=== PATIENT | female | born 1960 | race Caucasian/White ===

== ENCOUNTER 2018-06-02 15:54 | Emergency (ER) | payer BC, MEDICARE | END 2018-06-02 18:01 | disposition home or self-care (01) | LOC: COL.ER 15:54 | DX: K56.41 Fecal impaction (principal); C50.919 Malignant neoplasm of unspecified site of unspecified female breast ==

== ENCOUNTER 2018-07-08 13:40 | Observation (INO) | payer BC, MEDICARE ==
[~2018-07-08] VITALS: Ht 165.1 cm; Wt 56.8 kg
[~2018-07-08 13:40] MED LIST: METHADONE H10 MG/TAB PO; MIRALAX510G PO; PROTONIX 40MG T40 MG PO; VALTREX 50500 MG/TAB PO; ZOFRAN 4MG T4 MG/TAB PO
[2018-07-08 14:45] LABS: BASO % 0.4 % (0.0-2.0); GRAN # 3.9 (1.4-6.5); GRAN % 75.3 % (42.2-75.2); LYMPH # 0.9 (1.2-3.4); LYMPH % 18.3 % (20.0-51.0); MEAN CELL VOLUME 92 fl (80.0-100.0); MEAN CORPUSCULAR HEMOGLOBIN 29 pg (27.0-31.0); MEAN CORPUSCULAR HGB CONC 32 g/dl (33.0-37.0); MEAN PLATELET VOLUME 9.2 fl (7.4-10.4); MONO # 0.3 (0.1-0.6); MONO % 5.6 % (1.7-9.3); PLATELET COUNT 169 K/mm3 (130-400); RED BLOOD COUNT 3.44 M/mm3 (4.10-5.30); REDCELL DISTRIBUTION WIDTH-CV 16.4 % (11.5-14.5)
[2018-07-08 14:46] LABS: HEMATOCRIT 31.6 % (37.0-47.0)
[2018-07-08 14:59] LABS: ALBUMIN 3.4 gm/dL (3.5-5.0); BILIRUBIN,TOTAL 0.4 mg/dL (0.0-1.0); CALCIUM 8.7 mg/dL (8.4-10.2); CREATININE, serum 0.66 (0.52-1.25); TOTAL PROTEIN 6.3 gm/dL (6.4-8.2)
--- NOTE | 2018-07-08 16:34 | NUR ---
LUIS met with the patient and her sister, Nimco Yuan . The patient lives alone in [place]. The patient has a walker. The patient does not have a PCP at this time. However, the patient does have an oncologist, Dr. Rocky Cr. The patient receives her medications from [facility] pharmacy and the patient reports no difficulties obtaining her medications. The patient does not have advanced directives in the EMR, but reports she does have them completed. The patient expressed interest in home health services. LUIS provided a list of home health agencies for the [facility] from Medicare.gov. LUIS will continue to follow.
[2018-07-08] MEDS ORDERED: NEURONTIN300 MG/CAP PO (16:42)
[2018-07-08 17:30] LABS: COLLECTION METHOD CLEAN CATCH
[2018-07-08 17:41] LABS: PH 7 (5-8); SQUAMOUS EPITHELIAL 0-2 /hpf; URINE APPEARANCE Clear; URINE BACTERIA None Seen /hpf; URINE BILIRUBIN Negative (NEGATIVE); URINE BLOOD Negative (NEGATIVE); URINE COLOR Yellow; URINE GLUCOSE Negative (NEGATIVE); URINE KETONE Negative (NEGATIVE); URINE LEUKOCYTE ESTERASE Negative (NEGATIVE); URINE NITRATE Negative (NEGATIVE); URINE PROTEIN(semi-quant) Negative (NEGATIVE); URINE RBC 0-2 /hpf; URINE UROBILINOGEN Negative (NEGATIVE)
--- NOTE | 2018-07-08 18:23 | NUR ---
Patient alert and oriented, answers questions appropriately. See assessment. Weakness noted with ambulation. C/o difficulty rising from toilet. No other c/o at this time.
[2018-07-08 20:48] VITALS: BP 108/51; PULSE 69; TEMP 98
[2018-07-08 23:43] VITALS: BP 99/52; PULSE 71; TEMP 98.2
--- NOTE | 2018-07-08 23:54 | NUR ---
Patient assessed. Reports pain to bilateral shoulders, radiating to her back. Receives methadone and neurontin at home for pain management. Home medications restarted and brought to patient. Patient reported she takes two 10mg tabs of Methadone. Called [facility] and given verbal order to increase to 20mg Q8H. Order updated. Patient voices no other needs or concerns at this time. Given mouth moisturizer as requested for chaped lips. Requested staff not wake her up when she falls asleep. Checked midnight VS. Did notify patient that staff would peak in on her throughout the night and try not to wake her up unless needed. Voiced understanding. Laying in bed at this time watching TV. Call light is within reach.
[2018-07-09] VITALS (8 sets, daily range): BP systolic 85–110; BP diastolic 50–65; PULSE 72–100; TEMP 97.9–98.2
--- NOTE | 2018-07-09 03:05 | NUR ---
Resting in bed with eyes closed at this time. Call light is within reach.
[2018-07-09 06:21] LABS: BASO % 0.3 % (0.0-2.0); GRAN # 2.6 (1.4-6.5); GRAN % 66.1 % (42.2-75.2); LYMPH # 1.1 (1.2-3.4); LYMPH % 26.8 % (20.0-51.0); MEAN CELL VOLUME 92 fl (80.0-100.0); MEAN CORPUSCULAR HGB CONC 32 g/dl (33.0-37.0); MEAN PLATELET VOLUME 9.9 fl (7.4-10.4); MONO # 0.3 (0.1-0.6); MONO % 6.3 % (1.7-9.3); PLATELET COUNT 155 K/mm3 (130-400); REDCELL DISTRIBUTION WIDTH-CV 16.3 % (11.5-14.5)
[2018-07-09 06:23] LABS: HEMATOCRIT 26.8 % (37.0-47.0); HEMOGLOBIN 8.5 g/dl (12.5-16.0); MEAN CORPUSCULAR HEMOGLOBIN 29 pg (27.0-31.0)
--- NOTE | 2018-07-09 06:25 | NUR ---
Patient slept on and off after around midnight. Denies having pain and discomfort. Given coffee as requested. Denies having any other needs or concerns at this time. Sitting up in bed watching TV at this time. Call light is within reach.
[2018-07-09 06:35] LABS: ALBUMIN 2.7 gm/dL (3.5-5.0); BILIRUBIN,TOTAL 0.2 mg/dL (0.0-1.0); CALCIUM 7.9 mg/dL (8.4-10.2); CREATININE, serum 0.56 (0.52-1.25); POTASSIUM 3.8 mmol/L (3.4-5.0); TOTAL PROTEIN 5.3 gm/dL (6.4-8.2)
--- NOTE | 2018-07-09 08:00 | NUR ---
PATIENT IS DROWSY THIS MORNING, BUT AROUSES EASILY TO NAME. PATIENT IS A&O. VSS. TELE IN PLACE. GENERALIZED WEAKNESS NOTED. BOWEL SOUNDS ACTIVE ALL FOUR QUADRANTS. PATIENT TOLERATING DIET WITHOUT ANY COMPLAINTS OF N/V. POSITIVE PEDAL PULSES EQUAL BILATERALLY. 1+ PITTING-EDEMA TO FEET BILATERALLY. DANICA CATH TO RIGHT CHEST. CALL LIGHT WITHIN REACH. PATIENT DENIES ANY NEEDS AT THIS TIME.
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
--- NOTE | 2018-07-09 10:38 | NUR ---
Initial visit; Patient thanked [employer] for stopping by and offering to keep her in [employer]'s prayers and thoughts. Patient recently lost her and moved here closer to family due to her serious illness.
--- NOTE | 2018-07-09 11:17 | NUR ---
LUIS met with patient about home health options. Patient would like SW to speak with her sister about options. Patient's sister will be here this afternoon.
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
--- NOTE | 2018-07-09 14:28 | NUR ---
ULIS met with patient and her sister, Nimco, about discharge plan. They report assisted living would be the best option for patient and Nimco will work on getting that arranged. Nimco also was wondering if patient would be able to discharge home before until the [place] apartment is ready for her to move in. LUIS reported she will sppeak with PT and OT about their recommendations. LUIS also informed patient and Nimco about a respite stay before AL if it is recommended for patient not to return home alone. LUIS will continue to follow.
--- NOTE | 2018-07-09 20:06 | NUR ---
PT RESTING IN BED a+ox4. reports 6/10 pain reports no needs for interventions. pt requested to take gabapentin with 2340 med. no needs at this time. shift assessment complete. call light inreach
[2018-07-10 04:38] VITALS: BP 92/52; PULSE 71; TEMP 98.1
--- NOTE | 2018-07-10 06:00 | NUR ---
pt had an uneventful night. some pain but reports no need for intervention. pt vitals stable. call light in reach. no needs at this time.
[2018-07-10 06:17] LABS: BASO % 0.6 % (0.0-2.0); EOS % 0.3 % (0-4.0); GRAN # 2.3 (1.4-6.5); GRAN % 63.7 % (42.2-75.2); MEAN CELL VOLUME 92 fl (80.0-100.0); MEAN CORPUSCULAR HGB CONC 32 g/dl (33.0-37.0); MEAN PLATELET VOLUME 9.4 fl (7.4-10.4); MONO # 0.2 (0.1-0.6); MONO % 6.8 % (1.7-9.3); PLATELET COUNT 148 K/mm3 (130-400); REDCELL DISTRIBUTION WIDTH-CV 16.4 % (11.5-14.5)
[2018-07-10 06:18] LABS: HEMATOCRIT 26.7 % (37.0-47.0); HEMOGLOBIN 8.4 g/dl (12.5-16.0); MEAN CORPUSCULAR HEMOGLOBIN 29 pg (27.0-31.0)
[2018-07-10 06:31] LABS: ALBUMIN 2.8 gm/dL (3.5-5.0); BILIRUBIN,TOTAL 0.2 mg/dL (0.0-1.0); CALCIUM 8.3 mg/dL (8.4-10.2); CREATININE, serum 0.58 (0.52-1.25); POTASSIUM 3.7 mmol/L (3.4-5.0); TOTAL PROTEIN 5.4 gm/dL (6.4-8.2)
--- NOTE | 2018-07-10 07:00 | NUR ---
Reported on to Conchis MCNAMARA
[2018-07-10 07:45] VITALS: BP 106/56; PULSE 69; TEMP 98
[2018-07-10 07:55] VITALS: BP 96/53
--- NOTE | 2018-07-10 08:00 | NUR ---
Shift assessment completed; right chest portacath CDI, no signs of redness, drainage, edema; complains of weakeness due to neuropathy and dizziness upon standing; wishes to shower this morning
[2018-07-10 08:05] VITALS: BP 83/56
--- NOTE | 2018-07-10 08:30 | NUR ---
Orthostatic blood pressure complete, supine 106/56, sitting 96/53, standing 83/56
--- NOTE | 2018-07-10 10:02 | NUR ---
Nadia-student nurse assisting with patient's care today.This RN agrees with her findings and documentation.patient to discharge home shortly.
--- NOTE | 2018-07-10 10:04 | NUR ---
This RN called MRI to confirm patients outpatient MRI appointment.patient updated.no needs voiced at this time.
--- NOTE | 2018-07-10 10:05 | NUR ---
patient awake,a/ox3.c/o generalised pain.scheduled meds given. aware of hypotension and rounded on patient.patient is asymptomatic.no needs voiced.call light in reach
--- NOTE | 2018-07-10 10:17 | NUR ---
SW attended clinical rounds to discuss discharge. Patient will discharge home today with [facility] (nursing, PT, OT). SW faxed a referral to [facility] and will fax discharge orders once they're completed.
[2018-07-10 11:47] VITALS: BP 110/59; PULSE 68; TEMP 98
--- NOTE | 2018-07-10 13:20 | NUR ---
pt discharge at this time.all discharge instructions reviewed.patient signed all paperwork and took all belongings.all questions answered.patient's Port de-accessed.Patient remains stable.This Rn escorted patient to Outpatient services where she will have an MRI previously scheduled.
== END 2018-07-10 13:22 | disposition home or self-care (01) ==
LOC: COL.ER 13:40 → MEDICAL 16:46
PROVIDERS: Emergency Medicine; Family Medicine; Nurse Practitioner Family; ADMIT Hospitalist
DX: R53.1 Weakness (principal); R62.7 Adult failure to thrive; E86.0 Dehydration; I95.9 Hypotension, unspecified; C50.919 Malignant neoplasm of unspecified site of unspecified female breast; C78.7 Secondary malignant neoplasm of liver and intrahepatic bile duct; C79.51 Secondary malignant neoplasm of bone; C79.31 Secondary malignant neoplasm of brain; D64.9 Anemia, unspecified; E44.0 Moderate protein-calorie malnutrition; Z90.710 Acquired absence of both cervix and uterus; Z90.13 Acquired absence of bilateral breasts and nipples; F17.210 Nicotine dependence, cigarettes, uncomplicated; Z82.49 Family history of ischemic heart disease and other diseases of the circulatory system; Z88.8 Allergy status to other drugs, medicaments and biological substances; Z92.21 Personal history of antineoplastic chemotherapy; W19.XXXA Unspecified fall, initial encounter
CPT/HCPCS: 99239; G0378; J1644; J7030

== ENCOUNTER → 2018-07-10 | Outpatient (CLI) | payer BC, MEDICARE ==
[~2018-07-10] MED LIST changes: +NEURONTIN300 MG/CAP PO
== END ==
LOC: COL.RAD 14:00
DX: C50.412 Malignant neoplasm of upper-outer quadrant of left female breast (principal); M75.102 Unspecified rotator cuff tear or rupture of left shoulder, not specified as traumatic

== ENCOUNTER 2018-07-21 12:00 | Emergency (ER) | payer BC, MEDICARE ==
[~2018-07-21] VITALS: Ht 165.1 cm; Wt 58.6 kg
[2018-07-21 12:01] VITALS: TEMP 97.7
[2018-07-21 12:37] LABS: BASO % 0.3 % (0.0-2.0); EOS # 0.1 (0.0-0.7); EOS % 3.5 % (0-4.0); GRAN # 1.9 (1.4-6.5); GRAN % 59.9 % (42.2-75.2); HEMATOCRIT 30.6 % (37.0-47.0); HEMOGLOBIN 9.7 g/dl (12.5-16.0); LYMPH % 30.5 % (20.0-51.0); MEAN CELL VOLUME 94 fl (80.0-100.0); MEAN CORPUSCULAR HEMOGLOBIN 30 pg (27.0-31.0); MEAN CORPUSCULAR HGB CONC 32 g/dl (33.0-37.0); MEAN PLATELET VOLUME 9.4 fl (7.4-10.4); MONO # 0.2 (0.1-0.6); MONO % 4.8 % (1.7-9.3); PLATELET COUNT 121 K/mm3 (130-400); RED BLOOD COUNT 3.27 M/mm3 (4.10-5.30)
[2018-07-21 12:41] LABS: INR 1.1 (0.8-3.0); PROTHROMBIN TIME 12.1 SECONDS (9.7-12.8)
[2018-07-21 12:49] LABS: ALBUMIN 3.2 gm/dL (3.5-5.0); BILIRUBIN,TOTAL 0.4 mg/dL (0.0-1.0); CALCIUM 8.7 mg/dL (8.4-10.2); CREATININE, serum 0.75 (0.52-1.25); POTASSIUM 3.8 mmol/L (3.4-5.0)
--- NOTE | 2018-07-21 14:52 | NUR ---
Consult received. family has concerns about patient safety. LUIS met with Sister Nimco and Brother in-law Roddy about patient's recent fall in home. Sister reports that patient refuses additional help at home and fired her home health provider. Sister indicated that the patient is having increased difficulty walking and has had three falls recently. Sister reports that patient cannot walk without walker and often attempts. Sister indicated that she believes patient is in denial about dx and would like to find out what options they have in placement. Sister does not believe PT will be agreeable to [facility] or [facility]. Patient has attempted to screen into [facility] for assisted living. LUIS consults Armando about screening her. Educated patient and family of services. Patient is reported to need transfer to another facility, will still need nursing services upon release.
[2018-07-21 14:53] VITALS: BP 1198/62; PULSE 72
--- NOTE | 2018-07-22 10:13 | NUR ---
red cross worker received call from Armando at [facility] requesting an the patient's most recent medication list be sent to him because he had not yet received it and also to verify patient's primary/secondary insurance ([employer] = primary and Medicare = secondary). red cross worker faxed patient's medication list and face sheet to [phone]. No further needs at this time.
== END 2018-07-21 15:13 | disposition short-term general hospital (02) ==
LOC: COL.ER 12:00
PROVIDERS: Emergency Medicine
DX: S20.229A Contusion of unspecified back wall of thorax, initial encounter (principal); I62.9 Nontraumatic intracranial hemorrhage, unspecified; W19.XXXA Unspecified fall, initial encounter; Y92.009 Unspecified place in unspecified non-institutional (private) residence as the place of occurrence of the external cause
CPT/HCPCS: J2270; Q9967

== ENCOUNTER 2018-08-11 13:32 | Emergency (ER) | payer BC, MEDICARE ==
[~2018-08-11] VITALS: Ht 165.1 cm; Wt 59.1 kg
[2018-08-11 13:36] VITALS: TEMP 97.9
[2018-08-11] MEDS ORDERED: MIRALAX PA17 GM/Dose PO (14:02)
[2018-08-11] MEDS ORDERED: ZOFRAN 4MG T4 MG/TAB PO (14:02)
[2018-08-11 15:30] VITALS: BP 128/73; PULSE 73
== END 2018-08-11 15:32 | disposition home or self-care (01) ==
LOC: COL.ER 13:32
DX: S22.42XA Multiple fractures of ribs, left side, initial encounter for closed fracture (principal); C50.919 Malignant neoplasm of unspecified site of unspecified female breast; W19.XXXA Unspecified fall, initial encounter

== ENCOUNTER → 2018-09-10 | Outpatient (CLI) | payer BC, MEDICARE ==
[~2018-09-10] MED LIST changes: +MIRALAX PA17 GM/Dose PO
== END ==
LOC: COL.RAD 09:17
DX: C50.412 Malignant neoplasm of upper-outer quadrant of left female breast (principal); C79.51 Secondary malignant neoplasm of bone; S22.42XA Multiple fractures of ribs, left side, initial encounter for closed fracture; S42.192A Fracture of other part of scapula, left shoulder, initial encounter for closed fracture
CPT/HCPCS: A9503

== ENCOUNTER → 2018-09-12 | Outpatient (CLI) | payer BC, MEDICARE | LOC: COL.RAD 08:00 | DX: C50.412 Malignant neoplasm of upper-outer quadrant of left female breast (principal); C79.51 Secondary malignant neoplasm of bone; S22.42XD Multiple fractures of ribs, left side, subsequent encounter for fracture with routine healing; K80.20 Calculus of gallbladder without cholecystitis without obstruction; E27.8 Other specified disorders of adrenal gland; R16.0 Hepatomegaly, not elsewhere classified; Z95.818 Presence of other cardiac implants and grafts; Z90.13 Acquired absence of bilateral breasts and nipples | CPT/HCPCS: A9503; Q9967 ==

== ENCOUNTER → 2018-10-26 | Outpatient (CLI) | payer BC, MEDICARE | LOC: COL.RAD 12:10 | DX: C50.412 Malignant neoplasm of upper-outer quadrant of left female breast (principal); C79.31 Secondary malignant neoplasm of brain | CPT/HCPCS: A9585 ==

== ENCOUNTER 2018-12-02 14:24 | Emergency (ER) | payer BC, MEDICARE ==
[~2018-12-02] VITALS: Ht 165.1 cm; Wt 68.2 kg
[2018-12-02 14:24] VITALS: TEMP 97.7
[2018-12-02 15:21] LABS: BASO % 0.4 % (0.0-2.0); EOS % 1.5 % (0-4.0); GRAN # 1.6 (1.4-6.5); HEMOGLOBIN 10.9 g/dl (12.5-16.0); LYMPH # 0.8 (1.2-3.4); LYMPH % 29.2 % (20.0-51.0); MEAN CELL VOLUME 92 fl (80.0-100.0); MEAN CORPUSCULAR HEMOGLOBIN 30 pg (27.0-31.0); MEAN CORPUSCULAR HGB CONC 32 g/dl (33.0-37.0); MEAN PLATELET VOLUME 9.2 fl (7.4-10.4); MONO # 0.3 (0.1-0.6); MONO % 9.9 % (1.7-9.3); PLATELET COUNT 147 K/mm3 (130-400); RED BLOOD COUNT 3.67 M/mm3 (4.10-5.30); REDCELL DISTRIBUTION WIDTH-CV 13.9 % (11.5-14.5)
[2018-12-02 15:24] LABS: HEMATOCRIT 33.9 % (37.0-47.0)
[2018-12-02 15:36] LABS: ALBUMIN 3.9 gm/dL (3.5-5.0); BILIRUBIN,TOTAL 0.4 mg/dL (0.0-1.0); C-REACTIVE PROTEIN 2.4 mg/dL (0.0-0.9); CALCIUM 8.8 mg/dL (8.4-10.2); CREATININE, serum 0.6 (0.52-1.25); POTASSIUM 3.8 mmol/L (3.4-5.0); TOTAL PROTEIN 6.9 gm/dL (6.4-8.2)
[2018-12-02 16:17] LABS: COLLECTION METHOD CLEAN CATCH
[2018-12-02 16:29] LABS: PH 6 (5-8); SQUAMOUS EPITHELIAL 0-2 /hpf; URINE APPEARANCE Clear; URINE BACTERIA None Seen /hpf; URINE BILIRUBIN Negative (NEGATIVE); URINE BLOOD 1+ (NEGATIVE); URINE COLOR Yellow; URINE GLUCOSE Negative (NEGATIVE); URINE KETONE Negative (NEGATIVE); URINE LEUKOCYTE ESTERASE 2+ (NEGATIVE); URINE NITRATE Negative (NEGATIVE); URINE PROTEIN(semi-quant) Negative (NEGATIVE); URINE RBC 0-2 /hpf; URINE UROBILINOGEN Negative (NEGATIVE)
[2018-12-02] MEDS ORDERED: CEPHALEXIN500 M1 PO (17:17)
[2018-12-02 17:52] VITALS: BP 120/74; PULSE 76
== END 2018-12-02 17:52 | disposition home or self-care (01) ==
LOC: COL.ER 14:24
PROVIDERS: Family Medicine
DX: N39.0 Urinary tract infection, site not specified (principal); C50.919 Malignant neoplasm of unspecified site of unspecified female breast; C79.31 Secondary malignant neoplasm of brain
CPT/HCPCS: A4216; J0696; J7030

== ENCOUNTER → 2018-12-06 | Outpatient (CLI) | payer BC, MEDICARE ==
[~2018-12-06] MED LIST changes: +CEPHALEXIN500 M1 PO
== END ==
LOC: COL.RAD 08:09
DX: C50.412 Malignant neoplasm of upper-outer quadrant of left female breast (principal); Z98.890 Other specified postprocedural states
CPT/HCPCS: A9585